=== PATIENT | female | born 1980 | race Caucasian/White ===

== ENCOUNTER 2021-08-30 11:58 | Emergency (ER) | payer MEDICAID ==
[~2021-08-30] VITALS: Ht 157.5 cm; Wt 68.0 kg
[2021-08-30 12:07] VITALS: BP 116/70
[2021-08-30] MEDS ORDERED: METF-873 PO (12:14)
[2021-08-30] MEDS ORDERED: TOPUD MT (13:36)
== END 2021-08-30 15:55 | disposition home or self-care (01) ==
LOC: ER 15:24
DX: J02.9 Acute pharyngitis, unspecified (principal); M79.18 Myalgia, other site; R05.9 Cough, unspecified; E11.9 Type 2 diabetes mellitus without complications; Z98.51 Tubal ligation status
CPT/HCPCS: 82962; 87070; 87430; 99283